=== PATIENT | female | born 1990 | race Two or more races ===

== ENCOUNTER 2022-06-30 16:15 | Emergency (ER) | payer MEDICAID, OTHER ==
[~2022-06-30] VITALS: Ht 154.9 cm; Wt 73.5 kg
[2022-06-30 17:06] VITALS: BP 102/50
[2022-06-30 18:11] LABS: Urine Bacteria FEW /hpf (None Seen); Urine Blood Negative /uL (Negative); Urine Specific Gravity 1.009 (1.001-1.035); Urine WBC 12 /hpf (0 - 5)
[2022-06-30] MEDS ORDERED: METR500T PO (18:28)
[2022-06-30] MEDS ORDERED: NITR-87 PO (18:28)
== END 2022-06-30 18:38 | disposition home or self-care (01) ==
LOC: ER 16:15
DX: O23.593 Infection of other part of genital tract in pregnancy, third trimester (principal); O23.43 Unspecified infection of urinary tract in pregnancy, third trimester; N39.0 Urinary tract infection, site not specified; Z79.899 Other long term (current) drug therapy; Z3A.33 33 weeks gestation of pregnancy
CPT/HCPCS: 81001; 87210

== ENCOUNTER 2022-08-16 13:55 | Observation (INO) | payer MEDICAID ==
[~2022-08-16 13:55] MED LIST: METR500T PO; NITR-87 PO
[2022-08-16] MEDS ORDERED: PREN-96 PO (15:17)
== END 2022-08-16 15:40 | disposition home or self-care (01) ==
LOC: UNDOADMOB 13:55 → LDRP 13:55
PROVIDERS: ADMIT Obstetrics & Gynecology; ATTEND Obstetrics & Gynecology
DX: O62.9 Abnormality of forces of labor, unspecified (principal); O26.893 Other specified pregnancy related conditions, third trimester; N89.8 Other specified noninflammatory disorders of vagina; Z3A.40 40 weeks gestation of pregnancy
CPT/HCPCS: 59025; 76818; 81002; 94762; G0378

== ENCOUNTER 2022-08-17 11:15 | Inpatient (IN) | payer MEDICAID ==
[~2022-08-17] VITALS: Ht 154.9 cm; Wt 78.5 kg
[~2022-08-17 11:15] MED LIST changes: +PREN-96 PO
[2022-08-17] MEDS ORDERED: BUTORPHANOL TARTRATE 2 MG/1 ML VIAL IV PRN ×2 (12:00)
[2022-08-17] MEDS ORDERED: WITCH HAZEL-GLYCERIN PAD TOP PRN (12:00)
[2022-08-17] MEDS ORDERED: LIDOCAINE 2%HCL (LOCAL ANESTH.) INJ 10ml MDV IJ PRN (12:00)
[2022-08-17] MEDS ORDERED: LACTATED RINGER'S 1,000 ML IV SCH (12:00)
[2022-08-17] MEDS ORDERED: DERMOPLAST 60ML BOTTLE TOP PRN (12:00)
[2022-08-17] MEDS ORDERED: PHISODERM TOP SOLN 240ML BTL TOP PRN (12:00)
[2022-08-17] MEDS ORDERED: PROMETHAZINE HCL 25 MG/ML 1ML IV PRN (12:00)
[2022-08-17] MEDS ORDERED: METHYLERGONOVINE MALEATE 0.2 MG/ML AMP IM PRN (12:00)
[2022-08-17 12:16] LABS: Basophils # (auto) 0 10 ^3/uL (0-0.2); Basophils % (auto) 0.3 % (0.0-2.0); Eosinophils # (auto) 0 10 ^3/uL (0-0.8); Eosinophils % (auto) 0.3 % (0.0-7.0); Hematocrit 39.8 % (36.0-46.0); Hemoglobin 13.5 g/dL (12.2-16.2); Lymphocytes # (auto) 1.6 10 ^3/uL (0.4-5.4); Mean Corpuscular Hemoglobin 30.6 pg (28.0-32.0); Mean Corpuscular Hgb Conc. 33.8 g/dL (32.0-36.0); Mean Corpuscular Volume 90.3 fL (80.0-100.0); Monocytes # (auto) 0.5 10 ^3/uL (0-1.3); Monocytes % (auto) 5.6 % (0.0-12.0); Neutrophils # (auto) 6.9 10 ^3/uL (1.6-8.6); Neutrophils % (auto) 75.8 % (37.0-80.0); Nucleated Red Blood Cells % 0.1 %; Red Cell Distribution Width 13.9 % (11.8-14.3); White Blood Cell 9.1 10^3/uL (4.4-10.8)
[2022-08-17 12:33] LABS: Urine Bacteria FEW /hpf (None Seen); Urine Blood 1+ /uL (Negative); Urine Specific Gravity 1.006 (1.001-1.035); Urine WBC 3 /hpf (0 - 5)
[2022-08-17 12:36] LABS: INR 0.87 (0.9-1.15); Partial Thromboplastin Time 31.6 sec (24.6-33.4)
[2022-08-17 12:42] LABS: Albumin 2.7 g/dL (3.4-5.0); BUN/Creatinine Ratio 15.4; Calcium 8.2 mg/dL (8.5-10.1); Potassium 3.7 mmol/L (3.5-5.1)
[2022-08-17 12:43] LABS: Alcohol, Urine < 3.0 mg/dL (0-10); Amphetamine Screen, Urine NEGATIVE (NEGATIVE); Barbiturate Scree,Urine NEGATIVE (NEGATIVE); Benzodiazephine Screen, Urine NEGATIVE (NEGATIVE); Cannabinoid Screen, Urine NEGATIVE (NEGATIVE); Cocaine Screen, Urine NEGATIVE (NEGATIVE); Opiate Scree,Urine NEGATIVE (NEGATIVE); Phencyclidine Screen, Urine NEGATIVE (NEGATIVE)
[2022-08-17 12:44] LABS: Bilirubin, Total 0.7 mg/dL (0.2-1.0); Total Protein 6.5 g/dL (6.4-8.2)
[2022-08-17] MEDS ORDERED: LACT. RINGERS/OXYTOCIN 20UNITS 500 ML IV ONE ×2 (13:15→13:45)
[2022-08-17] MEDS ORDERED: ROPIVACAINE HCL 200 ML EPI SCH (13:45)
[2022-08-17] MEDS ORDERED: fentaNYL CITRATE 100 MCG/2 ML VL IV ONE (13:45)
[2022-08-17] MEDS ORDERED: ePHEDrine SULFATE 50 MG/ML AMP IV ONE (13:45)
[2022-08-17] MEDS ORDERED: LIDOCAINE HCL 2 %PF INJ 10ML AMP IJ ONE (13:45)
[2022-08-17] MEDS ORDERED: NALOXONE HCL 0.4 MG/ML VIAL IV ONE (13:45)
[2022-08-17] MEDS ORDERED: ONDANSETRON ODT 4 MG TAB PO PRN (18:00)
[2022-08-17] MEDS ORDERED: ACETAMINOPHEN 325 MG TAB PO PRN (18:00)
[2022-08-17 19:00] VITALS: BP 123/70
[2022-08-17] MEDS: IBUPROFEN 800 MG TAB PO SCH (20:56)
[2022-08-17] MEDS ORDERED: DOCUSATE SOD 100 MG CAP PO SCH (22:00)
[2022-08-17 23:00] VITALS: BP 100/57
[2022-08-18 03:30] VITALS: BP 108/69
[2022-08-18] MEDS: IBUPROFEN 800 MG TAB PO SCH ×4 (06:05→17:23)
[2022-08-18 06:53] VITALS: BP 116/73
[2022-08-18 08:06] LABS: RPR Non Reactive (Non Reactive)
[2022-08-18 11:00] VITALS: BP 115/73
[2022-08-18 15:00] VITALS: BP 114/68
[2022-08-18 18:45] VITALS: BP 110/68
[2022-08-18 20:14] VITALS: BP 110/68
== END 2022-08-18 20:14 | disposition home or self-care (01) | DRG 560 ==
LOC: LDRP 11:15 → UNDOADMOB 11:15 → LDRP 11:51 → INTOOBSV 11:58 → OBSVTOIN 11:58
PROVIDERS: ADMIT Obstetrics & Gynecology; ATTEND Obstetrics & Gynecology
PROC: 10E0XZZ Delivery of Products of Conception, External Approach (ICD-10-PCS; principal; 2022-08-17)
PROC: 0KQM0ZZ Repair Perineum Muscle, Open Approach (ICD-10-PCS; 2022-08-17)
PROC: 3E0R3BZ Introduction of Anesthetic Agent into Spinal Canal, Percutaneous Approach (ICD-10-PCS; 2022-08-17)
PROC: 00HU33Z Insertion of Infusion Device into Spinal Canal, Percutaneous Approach (ICD-10-PCS; 2022-08-17)
DX: O69.81X0 Labor and delivery complicated by cord around neck, without compression, not applicable or unspecified (principal); Z37.0 Single live birth; O70.1 Second degree perineal laceration during delivery; Z20.822 Contact with and (suspected) exposure to COVID-19; Z3A.40 40 weeks gestation of pregnancy
CPT/HCPCS: 36415; 59025; 59409; 80053; 80307; 81001; 81002; 85025; 85610; 85730; 86592; 86850; 86900; 86901; 87426; 94760; 96361; 96365; 96366; G0378; J2590